=== PATIENT | female | born 1970 | race Caucasian/White ===

== ENCOUNTER 2022-08-04 10:56 | Emergency (ER) | payer OTHER, BC ==
[~2022-08-04] VITALS: Ht 172.7 cm; Wt 77.1 kg
== END 2022-08-04 12:42 | disposition home or self-care (01) ==
LOC: ER 10:56
DX: S09.90XA Unspecified injury of head, initial encounter (principal); W10.2XXA Fall (on)(from) incline, initial encounter
CPT/HCPCS: 70450